=== PATIENT | male | born 1995 | race Caucasian/White ===

== ENCOUNTER 2024-07-06 19:44 | Emergency (ER) | payer OTHER, SELFPAY ==
--- NOTE | 2024-07-06 19:47 | XRR_ITS ---
PROCEDURE INFORMATION: Exam: XR Right Foot Exam date and time: 07/06/2024 8:14 PM Age: 29 years old Clinical indication: Pain; Foot; Right; Additional info: Injury TECHNIQUE: Imaging protocol: Radiologic exam of the right foot. Views: 3 or more views. COMPARISON: No relevant prior studies available. FINDINGS: Bones/joints: Normal. Soft tissues: Normal. XR/XR foot RT min 3V* [id number] IMPRESSION: No acute findings.
[2024-07-06 20:09] VITALS: BP 118/99; PULSE 98; RESP 16; TEMP 36.3; O2SAT 98
--- NOTE | 2024-07-06 20:15 | XRR_ITS ---
PROCEDURE INFORMATION: Exam: XR Right Ankle Exam date and time: 07/06/2024 8:21 PM Age: 29 years old Clinical indication: Pain; Ankle; Right; Additional info: Injury TECHNIQUE: Imaging protocol: Radiologic exam of the right ankle. Views: 3 or more views. COMPARISON: CR (LOW EXM, ) 07/06/2024 8:14 PM FINDINGS: Bones/joints: Normal. Soft tissues: Normal. XR/XR ankle RT min 3V* [id number] IMPRESSION: No acute findings.
--- NOTE | 2024-07-06 20:15 | XRR_ITS ---
PROCEDURE INFORMATION: Exam: XR Right Knee Exam date and time: 07/06/2024 8:21 PM Age: 29 years old Clinical indication: Pain; Knee; Right; Additional info: Injury TECHNIQUE: Imaging protocol: Radiologic exam of the right knee. Views: 3 views. COMPARISON: CR (LOW EXM, ) 07/06/2024 8:14 PM FINDINGS: Bones/joints: Normal. Soft tissues: Normal. XR/XR knee RT 3V* [id number] IMPRESSION: No acute findings.
--- NOTE | 2024-07-06 20:17 | ED_ITS ---
HPI - Extremity Problem General: Chief complaint: Extremity Injury, Lower Stated complaint: Rt Foot Injury Time Seen by Provider: 07/06/24 19:47 Source: patient Mode of arrival: ambulatory Limitations: no limitations History of Present Illness: Patient is a 29-year-old male presents the emergency department complaining of right foot pain beginning at about 1500 with earlier today. He states he is pl aying basketball outside in asphalt, he was wearing an old pair shoes that broke on him and caused an inversion injury to his right foot. He states that the pain is only worse when he bears weight, and feels that his knee adeel on him. He also notes an injury to his right knee where he scraped it on the asphalt after falling. States he tried to go to work but had to leave due to pain with standing. He has not iced or taken any medications for this. Also notes a previous injury to the right foot after falling off of a roof at work. MD Complaint: extremity pain Onset (ago): hour(s) Pain Consistency: constant Location: right and lower extremity Exacerbating factors: weight bearing Associated symptoms: Deny chest pain, fever(s) or rash Related Data Allergies Allergy/AdvReac Type Severity Reaction Status Date / Time No Known Allergies Allergy Verified 07/06/24 20:13 Review of Systems General: Reports: 10 or more systems reviewed and unremarkable except in HPI and below Const: Denies: fever(s) or chills Card: Denies: chest pain Resp: Denies: dyspnea or productive cough GI: Denies: abdominal pain, nausea, vomiting or diarrhea : Denies: flank pain Musc: Reports: extremity pain (Right foot) and joint pain (Right knee); Denies: neck pain, back pain, extremity swelling, joint swelling, joint redness, joint warmth, limited range of motion or muscle weakness Skin/Breast: Denies: rash Neuro: Denies: headache(s), numbness in extremities or weakness in extremities Physical Exam Const: COMMON NORMALS: no acute distress, patient oriented x3, no limitations, healthy appearing, alert and well nourished HENMT: COMMON NORMALS: normocephalic and atraumatic HEAD & SCALP: normocephalic and atraumatic Neck/C-Spine: COMMON NORMALS: full ROM, supple and no meningeal signs Resp: COMMON NORMALS: normal respiratory effort, No use of accessory muscles and clear to auscultation bilaterally AUSCULTATION: clear to auscultation bilaterally Cardio: COMMON NORMALS: regular rate and regular rhythm RATE: regular rate RHYTHM: regular rhythm Extremity: COMMON NORMALS: normal to inspection, full ROM, capillary refill normal, no joint enlargement and no clubbing, cyanosis or edema NARRATIVE EXTREMITY EXAM: No obvious swelling to the right foot or ankle. No reproducible tenderness to palpation to the ankle or in the foot. Distal strength intact. Distal neurovascular status intact. Dorsalis pedis and posterior tibial pulse palpable. Abrasion to anterior right knee, no proximal fibular tenderness to palpation or other knee joint tenderness. No knee swelling. Neuro: COMMON NORMALS: patient oriented x3, moves all extremities, no focal motor deficits and no sensory deficits noted SENSORIUM/ORIENTATION: Yes alert MENINGEAL SIGNS: Yes no meningeal signs Skin: NARRATIVE SKIN EXAM: Abrasion right anterior knee Course Vital Signs: Vital signs: Vital Signs Temperature 97.4 F L 07/06/24 20:09 Pulse Rate 98 07/06/24 20:09 Respiratory Rate 16 07/06/24 20:09 Blood Pressure 118/99 07/06/24 20:09 Pulse Oximetry 98 07/06/24 20:09 Oxygen Delivery Me thod Room Air 07/06/24 20:09 MDM - Extremity (Nontraumatic) Medical Decision Making Patient presents with right foot injury he suffered earlier today. No obvious deformity and there was no significant reproducible tenderness to palpation on exam. No bruising or outward site of injury other than an abrasion to right anterior knee associated with the injury. X-ray of the foot, ankle, and knee were all negative. Suspect foot sprain with associated knee abrasion and will be discharged home with conservative therapy discussed. Lab Data Radiology Impressions Foot X-Ray 07/06/24 19:47 IMPRESSION: No acute findings. Ankle X-Ray 07/06/24 20:15 IMPRESSION: No acute findings. Knee X-Ray 07/06/24 20:15 IMPRESSION: No acute findings. All radiology interpretation(s) finalized by discharge Discharge Plan Discharge Patient Disposition: Home Clinical Impression: Right foot sprain Qualifiers: Encounter type: initial encounter Qualified Code(s): S93.601A - Unspecified sprain of right foot, initial encounter Condition: Stable Discharge Orders: Discharge ED (Routine); Ordered 07/06/24 Ordered By: Raheel Alexandra Patient Instructions: Foot Sprain (ED) Activity Restrictions/Additional Instructions: Rest, ice, compression, and elevation. Ibuprofen and Tylenol. Weightbearing as tolerated and range of motion exercises. Follow-up with primary care return with any new or worsening. 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
[2024-07-06 22:19] VITALS: BP 137/68; PULSE 85; O2SAT 99
== END 2024-07-06 22:22 | disposition home or self-care (01) ==
PROVIDERS: Emergency Provider Physician Assistant
DX: S93.601A Unspecified sprain of right foot, initial encounter (principal); X58.XXXA Exposure to other specified factors, initial encounter; Y93.67 Activity, basketball
CPT/HCPCS: 73562; 73610; 73630; 99284

== ENCOUNTER 2024-07-13 16:28 | Emergency (ER) | payer OTHER, SELFPAY ==
[2024-07-13 16:31] VITALS: BP 125/84; PULSE 99; TEMP 36.7; O2SAT 98
--- NOTE | 2024-07-13 17:09 | W.ED.EXTPRO ---
HPI - Extremity Problem General: Chief complaint: Extremity Injury, Lower Stated complaint: post foot injury Time Seen by Provider: 07/13/24 16:33 Source: patient Mode of arrival: ambulatory Limitations: no limitations History of Present Illness: Patient is a 29-year-old male who presents to ED today for re-evaluation of a right foot injury that he sustained a week ago after injuring it while playing basketball. Patient states he has been utilizing an JULIEN wrap but was not given crutches and has been walking on it since the incident. He is here for re-evaluation as symptoms are not improving and he continues to have pain. MD Complaint: extremity pain Onset (ago): day(s) Pain Consistency: constant Location: right and lower extremity (foot) Radiation: none Relieving factors: immobilization Exacerbating factors: weight bearing and walking Associated symptoms: Reports no associated symptoms Related Data Allergies Allergy/AdvReac Type Severity Reaction Status Date / Time No Known Allergies Allergy Verified 07/13/24 16:38 Review of Systems Musc: Reports: extremity pain (R foot) Neuro: Denies: numbness in extremities, weakness in extremities, sensory changes or difficulty walking Physical Exam Const: COMMON NORMALS: no acute distress, average body habitus, no limitations, healthy appearing, alert and well nourished Extremity: COMMON NORMALS: full ROM, capillary refill normal, no joint enlargement, no clubbing, cyanosis or edema, no calf tenderness and no pedal edema GENERAL: Yes normal exam except as noted RIGHT LOWER EXTREMITY: Yes foot & digits (TTP dorsal lateral foot/ankle; mild edema) Right foot and digits: Yes neurovascular exam (normal) Neuro: COMMON NORMALS: moves all extremities, no focal motor deficits and no sensory deficits noted SENSORIUM/ORIENTATION: Yes alert Course Vital Signs: Vital signs: Vital Signs Temperature 98.1 F 07/13/24 16:31 Pulse Rate 99 07/13/24 16:31 Blood Pressure 125/84 07/13/24 16:31 Pulse Oximetry 98 07/13/24 16:31 Oxygen Delivery Me thod Room Air 07/13/24 16:31 MDM - Extremity (Nontraumatic) Medical Decision Making XRs of his R foot, ankle, knee films from his last visit were reviewed. Discussed how ligamentous injuries/sprains/strains can sometimes take several weeks to heal. He would benefit from using crutches over the next week to aid with healing. Recommend he continue his JULIEN wrap, icing, anti-inflammatories. If symptoms are still not improving, recommend he follow-up with primary care. Medical Records I reviewed the patient's medical records. No radiology studies performed this visit Discharge Plan Discharge Patient Disposition: Home Clinical Impression: Right foot sprain Qualifiers: Encounter type: initial encounter Qualified Code(s): S93.601A - Unspecified sprain of right foot, initial encounter Condition: Stable Discharge Orders: Discharge ED (Routine); Ordered 07/13/24 Ordered By: Krystal Hidalgo Patient Instructions: Foot Sprain (ED) Activity Restrictions/Additional Instructions: As we discussed, it is not uncommon for foot sprains to take several weeks to heal. You have been ambulating on your side for the past week. At this time I would recommend you start using crutches you may slowly begin to bear weight as symptoms improve. Continue your Julien wrap as well as icing and elevating the extremity and [id number] anti-inflammatories. 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
== END 2024-07-13 17:31 | disposition home or self-care (01) ==
PROVIDERS: Emergency Provider Physician Assistant
DX: S93.601D Unspecified sprain of right foot, subsequent encounter (principal); Y93.67 Activity, basketball; X58.XXXD Exposure to other specified factors, subsequent encounter
CPT/HCPCS: 99282